=== PATIENT | male | born 1945 | race Caucasian/White ===

== ENCOUNTER 2023-05-26 08:21 | Emergency (ER) | payer MEDICARE, SELFPAY ==
[2023-05-26 08:33] VITALS: BP 136/66; PULSE 84; RESP 16; TEMP 36.6; O2SAT 95
--- NOTE | 2023-05-26 08:48 | ED.GENADULT ---
HPI - General Adult General Chief complaint: Extremity Problem,Nontraumatic Stated complaint: Rash/Right Leg Source: patient Mode of arrival: ambulatory Limitations: no limitations History of Present Illness HPI narrative: 78 y/o male with hx DM, Afib, CKD presented for c/o right lower leg redness for about4 days. States he always has mild lower leg swelling. He has scattered scratches and flaky skin to the lower leg, and applies neosporin daily. Noticed right lateral leg redness spreading across the front of the lower leg. Denies pain, warmth, or significant increase in swelling. Patient resides in [place], and is here visiting family for 5 more days. Related Data Home Medications Medication Instructions Recorded Confirmed allopurinol 300 mg tablet 300 mg PO DAILY 05/26/23 05/26/23 apixaban 2.5 mg tablet (Eliquis) 2.5 mg PO BID 05/26/23 05/26/23 atorvastatin 80 mg tablet 80 mg PO DAILY 05/26/23 05/26/23 carvedilol 6.25 mg tablet 6.25 mg PO BID 05/26/23 05/26/23 cholecalciferol (vitamin D3) 125 125 mcg PO 3XW 05/26/23 05/26/23 mcg (5,000 unit) tablet (Vitamin D3) eplerenone 50 mg tablet 50 mg PO DAILY 05/26/23 05/26/23 fenofibrate 160 mg tablet 160 mg PO DAILY 05/26/23 05/26/23 guar gum 2 tbsp PO TID 05/26/23 05/26/23 insulin aspart U-100 100 unit/mL 12 unit subcut TID 05/26/23 05/26/23 (3 mL) subcutaneous pen (Novolog FlexPen U-100 Insulin aspart) insulin glargine U-300 conc 300 25 unit subcut HS 05/26/23 05/26/23 unit/mL (3 mL) subcutaneous pen (Toujeo Max U-300 SoloStar) lisinopril 40 mg tablet 40 mg PO DAILY 05/26/23 05/26/23 metolazone 2.5 mg tablet 2.5 mg PO DAILY 05/26/23 05/26/23 minoxidil 2.5 mg tablet 5 mg PO BID 05/26/23 05/26/23 polyethylene glycol 3350 17 17 g PO DAILY 05/26/23 05/26/23 gram/dose oral powder (Miralax) potassium chloride 20 mEq 20 meq PO DAILY 05/26/23 05/26/23 tablet,extended release torsemide 20 mg tablet 20 mg PO QAM 05/26/23 05/26/23 Allergies Allergy/AdvReac Type Severity Reaction Status Date / Time Penicillins Allergy Unknown Unknown Verified 05/26/23 08:52 Review of Systems Review of Systems: CONSTITUTIONAL: Denies body aches, fever, chills, or sweats. EYES: Denies visual changes, redness, or discharge. ENT: Denies rhinorrhea, congestion CARDIOVASCULAR: Denies chest pain, palpitations, or edema. RESPIRATORY: Denies cough or dyspnea. GASTROINTESTINAL: Denies abdominal pain, nausea, vomiting, or diarrhea. SKIN: Reports redness to right lower leg MUSCULOSKELETAL: Denies back pain, joint pain, or myalgia. NEUROLOGIC: Denies headache, numbness, tingling, or weakness. [facility] Past Medical History Medical History (Updated 05/26/23 @ 09:14 by Paulina Carpenter, OSEAS) Afib CKD (chronic kidney disease) Diabetes Comments At time of signature, I have reviewed and agree with nursing past medical, surgical, social and family history unless otherwise noted. Please see nursing chart for further information. There is no relevant family history pertinent to the presenting complaint Exam Narrative: GENERAL: Well-appearing HEAD: Normocephalic, atraumatic. EYES: conjunctivae clear, and EOMI. ENT: Mucous membranes moist. Oropharynx without edema, erythema or lesions. NECK: Supple. No lymphadenopathy CHEST: Clear to auscultation. HEART: Irregular rhythm. Murmur noted. SKIN: Warm, dry. BLE with edson discoloration to lower legs, 1+ lower ext edema. RLE from mid lower leg to ankle is erythematous, no warmth or tenderness; not circumferential. Erythema covers approx 75% of lower leg. Few scattered abrasions and flaky skin to RLE. No oozing. Cap refill <3seconds. EXT: Sensation intact. Bilateral pedal pulses +2 and equal. Full ROM. Neg val's. NEURO: Alert and oriented x3. Course Course Emergency Course: Patient is aware of diagnosis, understands and agrees to treatment plan. Anticipatory guidance given. Patient agrees to follow-up as directed and is a
== END 2023-05-26 09:10 | disposition home or self-care (01) ==
PROVIDERS: Emergency Provider Nurse Practitioner Family
DX: L03.115 Cellulitis of right lower limb (principal); I13.10 Hypertensive heart and chronic kidney disease without heart failure, with stage 1 through stage 4 chronic kidney disease, or unspecified chronic kidney disease; E11.22 Type 2 diabetes mellitus with diabetic chronic kidney disease; N18.9 Chronic kidney disease, unspecified; Z79.4 Long term (current) use of insulin; I48.91 Unspecified atrial fibrillation; E78.00 Pure hypercholesterolemia, unspecified; M10.9 Gout, unspecified
CPT/HCPCS: 99213; G0463